=== PATIENT | female | born 1945 | race Caucasian/White ===

== ENCOUNTER → 2017-02-20 | Outpatient (CLI) | payer MEDICARE, BC ==
--- NOTE | 2017-02-21 07:42 | XR ---
EXAMINATION TYPE: XR knee 4V bilateral DATE OF EXAM: 02/20/2017 CLINICAL HISTORY: Bilateral knee pain after fall injury 2 weeks ago. TECHNIQUE: Three views of the bilateral knees are obtained including weightbearing frontal views. In addition fourth sunrise projection is acquired. COMPARISON: None. FINDINGS: There is no acute fracture/dislocation evident in either knee. There is symmetric mild med ial joint space loss on weightbearing frontal views. In fabella is incidentally noted bilaterally. P atellar articulation is within normal limits on sunrise views bilaterally. No significant spurring is seen bilaterally. The overlying soft tissue appears unremarkable bilaterally. IMPRESSION: There is no acute fracture or dislocation in either knee.
== END | disposition home or self-care (01) ==
LOC: RADXRMAIN 17:04
PROVIDERS: ATTEND Family Medicine
DX: M25.561 Pain in right knee (principal); M25.562 Pain in left knee

== ENCOUNTER → 2018-02-18 | Outpatient (CLI) | payer MEDICARE, BC ==
--- NOTE | 2018-02-19 00:24 | XR ---
EXAMINATION TYPE: XR lumbosacral spine min 4V DATE OF EXAM: 02/18/2018 CLINICAL HISTORY: Pain from fall one year ago. TECHNIQUE: Frontal, lateral, and oblique images of the lumbar spine are obtained. COMPARISON: None FINDINGS: Osseous structures are demineralized which is noted to lower radiographic sensitivity. Ther e are 5 lumbar type vertebral bodies identified. The lumbar spine shows dextroconvex scoliotic curva ture centered at L2-L3 level without evidence of acute fracture or dislocation. Vertebral body height s and disk space heights are within normal limits. The oblique images appear within normal limits. Multilevel facet arthropathy mid to lower lumbar spine is present. Cholecystectomy clips are seen in overlying soft tissue. IMPRESSION: As above.
--- NOTE | 2018-02-19 00:25 | XR ---
EXAMINATION TYPE: XR Hip Bilateral Complete DATE OF EXAM: 02/18/2018 CLINICAL HISTORY: Pain after falling injury one year ago. TECHNIQUE: AP and frogleg views of the bilateral hips are obtained. COMPARISON: None. FINDINGS: There is no acute fracture/dislocation evident in either hip. There is symmetric mild axia l joint space loss in both hips. No significant spurring is present. The overlying soft tissue appea rs unremarkable bilaterally. IMPRESSION: As above.
== END | disposition home or self-care (01) ==
LOC: RADXRMAIN 17:18
PROVIDERS: ATTEND Family Medicine
DX: M46.96 Unspecified inflammatory spondylopathy, lumbar region (principal); M41.86 Other forms of scoliosis, lumbar region; M25.851 Other specified joint disorders, right hip; M25.852 Other specified joint disorders, left hip
CPT/HCPCS: 72110; 73521

== ENCOUNTER → 2018-03-03 | Outpatient (CLI) | payer MEDICARE, BC ==
--- NOTE | 2018-03-03 09:02 | BD ---
EXAMINATION TYPE: Axial Bone Density DATE OF EXAM: 03/03/2018 COMPARISON: NONE CLINICAL HISTORY: Height: 5FT 2 1/2 IN Weight: 140 FRAX RISK QUESTIONS: History of Fracture in Adulthood: YES RISK FACTORS HISTORY OF: Active: YES Postmenopausal woman: LATE 50'S MEDICATIONS: Thyroid Medications: YES Which medication: SYNTHROID How Lon YEARS Additional Medications: SYNTHROID Additional History: EXAM MEASUREMENTS: Bone mineral densitometry was performed using the [employer] System. Bone mineral density as measured about the Lumbar spine is: ----- L1-L4(G/cm2): 0.784 T Score Values are as follows: ----- L2: -3.5 ----- L3: -3.4 ----- L4: -3.4 ----- L1-L4: -3.3 PREV ELSEWHERE Bone mineral density about the R hip (g/cm2): 0.621 Bone mineral density about the L hip (g/cm2): 0.643 T Score values are as follows: -----R Neck: -3.0 -----L Neck: -2.8 -----R Total: -3.2 -----L Total: -2.9 PREV ELSEWHERE IMPRESSION: Osteoporosis (T Score less than -2.5) in low back and both hips. There is increased fracture risk and therapy is usually indicated based on age. Re-Screen 1-2 years. NOTE: T-SCORE=SD OF THE YOUNG ADULT MEAN.
== END | disposition home or self-care (01) ==
LOC: RADBDWWP 07:23
PROVIDERS: ATTEND Family Medicine
DX: M81.0 Age-related osteoporosis without current pathological fracture (principal)
CPT/HCPCS: 77080

== ENCOUNTER → 2019-02-02 | Outpatient (CLI) | payer MEDICARE, BC ==
--- NOTE | 2019-02-02 14:04 | EST ---
EXERCISE STRESS AGE: 73 SEX: F HT: 5'3" WT: 140 PROTOCOL: Vinny Stress STAGE: 3 DURATION OF EXERCISE: 8:00 HEART RATE REST: 55 BLOOD PRESSURE REST: 111/76 MAXIMUM HEART RATE ACHIEVED: 131 MAXIMUM BLOOD PRESSURE: 186/92 85% MPHR: 126 100% MPHR: 148 METS: 9.7 INDICATIONS: Family history heart disease. CLINICAL INFORMATION: Baseline EKG revealed normal sinus rhythm without significant ST-T changes. Patient walked on a standard Vinny protocol for a total duration of 8 minutes, achieved a maximal heart rate of 131 beats per minute which is more than 85% of predicted maximal. She developed some fatigue and shortness of breath but did not have any angina or arrhythmia. EKG revealed upsloping nonspecific ST-segment changes, not suggestive of ischemia. There was no angina or arrhythmia. FINAL IMPRESSION: By EKG criteria this is an unremarkable stress test without clear-cut evidence of ischemia. Fair exercise capacity was noted. Upsloping nonspecific ST-segment changes without any symptoms of angina were noted. There was no arrhythmia. This is a negative stress test with upsloping ST-segment changes without anginal symptoms. MMODL / IJN: [id number] /
== END | disposition home or self-care (01) ==
LOC: RADNMMAIN 10:16
PROVIDERS: ATTEND Family Medicine
DX: R00.2 Palpitations (principal)
CPT/HCPCS: 93017; 93306

== ENCOUNTER → 2020-06-23 | Outpatient (CLI) | payer MEDICARE, BC ==
--- NOTE | 2020-06-23 16:21 | BD ---
EXAMINATION TYPE: Axial Bone Density DATE OF EXAM: 06/23/2020 COMPARISON: NONE CLINICAL HISTORY: Height: 5 FT 3 IN Weight: 147 FRAX RISK QUESTIONS: Alcohol (3 or more units per day): NO Family History (Parent hip fracture): NO Glucocorticoids (More than 3mos): NO (Ex: prednisone, prednisolone, methylprednisolone, dexamethasone, and hydrocortisone). History of Fracture in Adulthood: YES Secondary Osteoporosis: 1. Type 1 Diabetes: NO 2. Hyperthyroidism: NO 3. Menopause before 45: NO 4. Malnutrition: NO 5. Chronic liver disease: NO Rheumatoid Arthritis: NO Current Tobacco Use: NO RISK FACTORS HISTORY OF: Surgery to Spine/Hip(right/left)/Wrist (right/left): RT CARPAL TUNNEL SURG AROUND 20 YEARS AGO Family History of Osteoporosis: NO Active: YES Diet low in dairy products/other sources of calcium: NO Postmenopausal woman: LATE 50'S Take estrogen and/or progesterone medications: NONE Lost more than 2 inches in height since high school: NO MEDICATIONS: Thyroid Medications: YES Which medication: SYNTHROID How Long: OVER 50 YEARS Additional Medications: SYNTHROID,XANAX AT NIGHT , INHALER NEEDED Additional History: EXAM MEASUREMENTS: Bone mineral densitometry was performed using the [employer] on [employer] System. Bone mineral density as measured about the Lumbar spine is: ----- L1-L4(G/cm2): 0.802 T Score Values are as follows: ----- L2: -3.4 ----- L3: -3.1 ----- L4: -3.3 ----- L1-L4: -3.1 Bone mineral density has: INCREASED 1.9 % since study of: 2018 Bone mineral density about the R hip (g/cm2): 0.603 Bone mineral density about the L hip (g/cm2): 0.621 T Score values are as follows: -----R Neck: -3.1 -----L Neck: -3.0 -----R Total: -3.4 -----L Total: -3.0 Bone mineral density has: DECREASED -3.2 % since study of: 2018 IMPRESSION: Osteoporosis (T Score less than -2.5). There is increased fracture risk and therapy is usually indicated based on age. Re-Screen 1-2 years. NOTE: T-SCORE=SD OF THE YOUNG ADULT MEAN.
== END | disposition home or self-care (01) ==
LOC: RADBDWWP 09:21
PROVIDERS: ATTEND Family Medicine
DX: M81.0 Age-related osteoporosis without current pathological fracture (principal)
CPT/HCPCS: 77080

== ENCOUNTER → 2021-01-23 | Outpatient (CLI) | payer MEDICARE, BC ==
[~2021-01-23] MED LIST: SODIUM CHLORIDE 0.9% 500 ML 500 ML in EMPTY BAG 1 BAG IV PRN; ZOLEDRONIC ACID 5 MG in SODIUM CHLORIDE 0.9% 100 ML IV NR
[2021-01-23 08:43] VITALS: BP 144/76; PULSE 76; RESP 16; TEMP 98.3
== END ==
LOC: PROCWHC3 08:20
PROVIDERS: ATTEND Internal Medicine
DX: M81.0 Age-related osteoporosis without current pathological fracture (principal); Z88.0 Allergy status to penicillin; Z88.6 Allergy status to analgesic agent; Z88.5 Allergy status to narcotic agent; Z91.011 Allergy to milk products
CPT/HCPCS: 96365; J3489

== ENCOUNTER → 2021-12-29 | Outpatient (CLI) | payer MEDICARE, BC ==
--- NOTE | 2021-12-29 17:03 | NM ---
EXAMINATION TYPE: NM bone scan whole body DATE OF EXAM: 12/29/2021 COMPARISON: NONE HISTORY: 76 year-old female spondylosis without myelopathy Technique: Delayed whole-body scanning was performed following the injection of 22.3 mCi Tc 99m MDP. Images acquired 4 hours post injection. FINDINGS: There is focal intense activity in the right elbow, likely site of injection. There is horizontally oriented focal activity involving a midthoracic vertebral body. Some scattered degenerative tracer activity at the left knee, right ankle, and bilateral hindfoot regions. IMPRESSION: 1. Focal uptake within a mid thoracic vertebral body suggesting a traumatic vertebral compression fra cture. Consider further radiographic, CT, or MRI assessment. 2. Focal activity at the right elbow likely corresponds to the site of injection.
== END | disposition home or self-care (01) ==
LOC: RADNMMAIN 10:00
PROVIDERS: ATTEND Physical Medicine & Rehabilitation
DX: R93.7 Abnormal findings on diagnostic imaging of other parts of musculoskeletal system (principal)
CPT/HCPCS: 78306; A9503

== ENCOUNTER → 2022-07-12 | Outpatient (CLI) | payer MEDICARE, BC ==
[2022-07-12 11:22] VITALS: BP 133/81; PULSE 76; RESP 16; TEMP 97.7
== END ==
LOC: PROCWHC3 11:05
PROVIDERS: ATTEND Family Medicine
DX: M81.0 Age-related osteoporosis without current pathological fracture (principal); Z88.5 Allergy status to narcotic agent; Z88.0 Allergy status to penicillin; Z91.011 Allergy to milk products; Z88.6 Allergy status to analgesic agent
CPT/HCPCS: 96365; J3489

== ENCOUNTER → 2022-10-01 | Outpatient (CLI) | payer MEDICARE, BC ==
--- NOTE | 2022-10-01 17:51 | CA ---
Transthoracic Echo Report Name: Deirdre Ruiz Age: 77 Gender: F : 1945 Exam Date: 10/01/2022 15:26 Exam Location: [facility] Ht (in): 63 Wt (lb): 150 Ordering Physician: Vladimir Villeda DO Attending/Referring Phys: Vladimir Villeda DO [employer] Roxi Mathew RDCS Procedure CPT: Indications: R01.1 Cardiac Hx: Technical Quality: Good Contrast 1: Total Dose (mL): Contrast 2: Total Dose (mL): MEASUREMENTS (Male / Female) Normal Values 2D ECHO LV Diastolic Diameter PLAX 3.9 cm 4.2 - 5.9 / 3.9 - 5.3 cm LV Systolic Diameter PLAX 2.6 cm IVS Diastolic Thickness 1.0 cm 0.6 - 1.0 / 0.6 - 0.9 cm LVPW Diastolic Thickness 0.9 cm 0.6 - 1.0 / 0.6 - 0.9 cm LV Relative Wall Thickness 0.5 RV Internal Dim ED PLAX 2.7 cm LA Systolic Diameter LX 3.1 cm 3.0 - 4.0 / 2.7 - 3.8 cm LV Diastolic Volume MOD 4C 86.0 cm??? LV Systolic Volume MOD 4C 31.8 cm??? LV Ejection Fraction MOD 4C 63.1 % LV Diastolic Length 4C 7.3 cm LV Systolic Length 4C 5.8 cm LV Diastolic Volume MOD 2C 68.5 cm??? LV Systolic Volume MOD 2C 23.5 cm??? LV Ejection Fraction MOD 2C 65.8 % LV Diastolic Length 2C 7.4 cm LV Systolic Length 2C 5.9 cm LA Volume 34.0 cm??? 18 - 58 / 22 - 52 cm??? M-MODE Aortic Root Diameter MM 3.2 cm MV E Point Septal Separation 0.4 cm AV Cusp Separation MM 2.0 cm DOPPLER MV Area PHT 3.0 cm??? Mitral E Point Velocity 69.6 cm/s Mitral A Point Velocity 86.3 cm/s Mitral E to A Ratio 0.8 MV Deceleration Time 254.1 ms MV E' Velocity 5.6 cm/s Mitral E to MV E' Ratio 12.5 TR Peak Velocity 236.2 cm/s TR Peak Gradient 22.3 mmHg Right Ventricular Systolic Press 26.6 mmHg FINDINGS Left Ventricle Left ventricular ejection fraction is estimated at 55-60 %. Normal Left ventricular size, wall thickness, systolic function with no obvious regional wall motion abnormalities. Normal Left ventricular diastolic filling pattern. Right Ventricle Normal right ventricular size and function. Right ventricular systolic pressure within normal limits. Right Atrium Normal right atrial size. Left Atrium Normal left atrial size. Mitral Valve Structurally normal mitral valve. mild mitral regurgitation. Aortic Valve Trileaflet aortic valve. No aortic valve stenosis or regurgitation. Tricuspid Valve Structurally normal tricuspid valve. Mild tricuspid regurgitation. Pulmonic Valve Structurally normal pulmonic valve. No pulmonic regurgitation. Pericardium Normal pericardium. No pericardial effusion. Aorta Normal size aortic root and proximal ascending aorta. CONCLUSIONS 1. Normal left ventricle size and systolic function 2. Mild mitral and tricuspid regurgitation Previewed by: Dr. Domenica Valverde MD (Electronically Signed) Final Date: 01 October 2022 17:50
== END | disposition home or self-care (01) ==
LOC: RADECHMAIN 15:18
PROVIDERS: ATTEND Family Medicine
DX: I08.1 Rheumatic disorders of both mitral and tricuspid valves (principal); R01.1 Cardiac murmur, unspecified
CPT/HCPCS: 93306

== ENCOUNTER → 2023-05-06 | Outpatient (CLI) | payer MEDICARE, BC ==
--- NOTE | 2023-05-06 20:32 | XR ---
EXAMINATION TYPE: XR chest 2V DATE OF EXAM: 05/06/2023 5:13 PM CLINICAL INDICATION:Female, 77 years old with history of J44.9 COPD; H COMPARISON: Chest radiographs from 08/31/2022 TECHNIQUE: XR chest 2V Frontal and lateral views of the chest. FINDINGS: Lungs/Pleura: Prominent interstitial lung markings are seen scattered throughout the lungs with eliazar ening of the diaphragm and increased lucency of the lung apices. No evidence of focal consolidation, pneumothorax or pleural effusion. Pulmonary vascularity: Unremarkable. Heart/mediastinum: Cardiomediastinal silhouette is unremarkable. Musculoskeletal: No acute osseous pathology. IMPRESSION: 1. No acute cardiopulmonary disease process. 2. COPD changes.
== END | disposition home or self-care (01) ==
LOC: RADXRMAIN 17:02
PROVIDERS: ATTEND Family Medicine
DX: J44.9 Chronic obstructive pulmonary disease, unspecified (principal)
CPT/HCPCS: 71046

== ENCOUNTER → 2023-07-23 | Outpatient (CLI) | payer MEDICARE, BC ==
--- NOTE | 2023-07-23 18:22 | XR ---
EXAMINATION TYPE: XR cervical spine comp DATE OF EXAM: 07/23/2023 4:47 PM CLINICAL INDICATION:Female, 77 years old with history of G43.009 MIGRAINE; PHH COMPARISON: None TECHNIQUE: The cervical spine was imaged in frontal, lateral, odontoid and bilateral oblique. FINDINGS: The osseous structures show normal alignment without evidence of an acute fracture. There are osteoph ytes noted throughout the cervical spine on the anterior and lateral aspects of the vertebral bodies. The intervertebral disk spaces are narrowed at multiple levels. Pedicles are intact. Soft tissues a re within normal limits. The odontoid appears intact. IMPRESSION: 1. No fracture or dislocation. 2. Moderate degenerative disc disease changes of the cervical spine.
== END | disposition home or self-care (01) ==
LOC: RADXRMAIN 16:16
PROVIDERS: ATTEND Family Medicine
DX: M50.30 Other cervical disc degeneration, unspecified cervical region (principal); S06.0X0A Concussion without loss of consciousness, initial encounter; G43.009 Migraine without aura, not intractable, without status migrainosus; W19.XXXA Unspecified fall, initial encounter
CPT/HCPCS: 72050

== ENCOUNTER → 2023-07-29 | Outpatient (CLI) | payer MEDICARE, BC ==
[2023-07-29 13:32] LABS: African American GFR (CKD) >90 (>60 ml/min/1.73 sqM); Blood Urea Nitrogen 23 mg/dL (7-17); Non-African American GFR(CKD) 89 (>60 ml/min/1.73 sqM)
--- NOTE | 2023-07-29 14:15 | CT ---
EXAMINATION TYPE: CT brain w con CT DLP: 1219 mGycm, Automated exposure control for dose reduction was used. DATE OF EXAM: 07/29/2023 1:49 PM COMPARISON: None. CLINICAL INDICATION:Female, 77 years old with history of S06.0X0A CONCUSSION WITHOUT LOSS; PHH, fell hitting head TECHNIQUE: Axial CT images of the brain were obtained with coronal and sagittal reformats created and reviewed. Contrast used:100 mL of Isovue 300 with IV Contrast, Oral contrast used: none. FINDINGS: Extra-axial spaces: No abnormal extra-axial fluid collections. Ventricular system: Within normal limits Cerebral parenchyma: No acute intraparenchymal hemorrhage or mass effect. The cerda-white junction is well differentiated. No abnormal enhancement is seen after the administration of intravenous contras t. Cerebellum: Unremarkable. Mass effect: No evidence of midline shift. Intracranial vasculature: unremarkable Soft tissues: Normal. Calvarium/osseous structures: No depressed skull fracture. Paranasal sinuses and mastoid air cells: Clear. Visualized orbits: Bilateral aphakia IMPRESSION: No acute intracranial process and no evidence to suggest intracranial mass.
== END | disposition home or self-care (01) ==
LOC: RADCTMAIN 12:38
PROVIDERS: ATTEND Family Medicine
DX: S06.0X0A Concussion without loss of consciousness, initial encounter (principal); W19.XXXA Unspecified fall, initial encounter
CPT/HCPCS: 82565; 84520; 70460; 36415; Q9967